=== PATIENT | male | born 1995 | race Caucasian/White ===

== ENCOUNTER 2020-10-24 17:22 | Emergency (ER) | payer OTHER, SELFPAY ==
--- NOTE | ~2020-10-24 | US_ITS ---
EXAMINATION: US ABDOMEN COMPLETE CLINICAL INFORMATION: Right, left, and epigastric abdominal pain. COMPARISON: None TECHNIQUE: Real-time imaging of the abdominal viscera. FINDINGS: PANCREAS: Normal. ABDOMINAL AORTA: The proximal, mid, and distal segments are normal in caliber. INFERIOR VENA CAVA: Visualized portions are normal. LIVER: The liver is normal in size. The liver contour is normal. Increased hepatic parenchymal echogenicity. No focal hepatic lesion. There is no intrahepatic biliary duct dilatation seen. GALLBLADDER: Normal. The gallbladder is physiologically distended without evidence of stones, sludge, polyps, wall thickening or pericholecystic fluid. COMMON BILE DUCT: Normal in caliber measuring 0.4 cm in diameter. RIGHT KIDNEY: Normal. No hydronephrosis. No renal calculi or focal parenchymal lesions. The kidney measures 11.3 cm in maximum dimension. LEFT KIDNEY: Normal. No hydronephrosis. No renal calculi or focal parenchymal lesions. The kidney measures 11.8 cm in maximum dimension. SPLEEN: Normal. The spleen measures 11.2 cm in maximum dimension. FREE FLUID: None. US/US abdomen complete IMPRESSION: 1. Increased hepatic parenchymal echogenicity, which can be seen in the setting of steatosis. Underlying hepatocellular disease cannot be excluded. No hepatic parenchymal lesion or biliary ductal dilatation. 2. Otherwise, unremarkable examination.
--- NOTE | ~2020-10-24 | CT_ITS ---
EXAMINATION: CT ABDOMEN AND PELVIS WITHOUT CONTRAST CLINICAL INFORMATION: Abdominal pain COMPARISON: Abdominal ultrasound earlier this evening TECHNIQUE: Multidetector volumetric imaging was performed from the superior aspect of the liver through the pubic symphysis. Sagittal and coronal reformatted images were obtained on the technologist's workstation. This CT examination was performed using dose optimization techniques as appropriate, variously including the following: *Automated exposure control *Adjustment of mA and/or kV according to patient size (this includes techniques or standardized protocols for targeted exams where dose is matched to indication/reason for exam; i.e. extremities or head) *Use of iterative reconstruction technique DLP: 1089 mGy-cm FINDINGS: LUNG BASES: The visualized lung bases are unremarkable. LIVER, GALLBLADDER, AND BILIARY TREE: The liver is enlarged measuring 21.3 cm in greatest cephalocaudad dimension with hepatic steatosis is redemonstrated. Areas of focal sparing present adjacent to the falciform ligament and gallbladder fossa. No focal hepatic masses or bile duct dilatation is seen. The gallbladder is unremarkable with no evidence of radiopaque gallstones, gallbladder wall thickening, or obvious pericholecystic inflammatory changes. PANCREAS: Unremarkable. SPLEEN: Unremarkable. A small splenule is present ADRENAL GLANDS: Unremarkable. KIDNEYS AND URETERS: The kidneys are normal in size, shape, and attenuation. No hydronephrosis, hydroureter, or calculi seen. No perinephric stranding. BLADDER: Unremarkable. GASTROINTESTINAL TRACT: Colonic diverticular changes are present without diverticulitis. The small and large bowel are unremarkable. The appendix is unremarkable. ABDOMINAL WALL: No significant hernia is appreciated. LYMPH NODES: Normal. VASCULAR: Unremarkable. PELVIC VISCERA: Prostate and seminal vesicles appear normal. OSSEOUS STRUCTURES: Unremarkable. CT/CT abdomen pelvis wo con IMPRESSION: An etiology for the patient's abdominal pain is not been found. Incidental note made of enlarged fatty liver and colonic diverticulosis without diverticulitis.
[2020-10-24 17:47] VITALS: BP 145/79; PULSE 70; RESP 18; TEMP 36.8; O2SAT 98; BMI 43.0
--- NOTE | 2020-10-24 19:35 | ED_ITS ---
HPI - Abdominal Pain General Chief Complaint: Abdominal Pain Stated Complaint: Chest pressure/Nausea Time Seen by Provider: 10/24/20 19:32 Source: patient and family Mode of arrival: ambulatory Limitations: no limitations History of Present Illness HPI narrative: 25-year-old male presents with his mother, has suspected autism or nonverbal learning disorder, presents with several days of epigastric pain, chest pressure, and a feeling of a full abdomen. When his abdomen feels very full, he does occasionally vomit. Patient is morbidly obese, does not have the best diet, and plays video games most of the day. He does not report any fevers or chills, and does not report any other concerning symptoms. MD elicited complaint: abdominal pain Onset (ago): day(s) (4) Pain Consistency: intermittent Location: epigastric, LUQ and RUQ Severity: moderate Quality: aching and fullness Radiation: none Migration to: no migration Exacerbating factors: eating, vomiting and movement Relieving factors: nothing Context: history of similar episodes Associated symptoms: denies other symptoms Treatments prior to arrival: NSAIDs and antacids Related Data Previous Rx's Medication Instructions Recorded ondansetron HCl 4 mg tablet 4 mg PO Q8H PRN #20 tab 10/24/20 (Zofran) Allergies Allergy/AdvReac Type Severity Reaction Status Date / Time No Known Allergies Allergy Unverified 11/03/19 19:52 Review of Systems Review of Systems Constitutional: No Weight loss, No Fever, No Chills, No Night Sweats, No Fatigue, No Malaise ENT/Mouth: No Hearing loss, No Ear Pain, No Nasal Congestion, No Sinus Pain, No Hoarseness, No sore throat, No Rhinorrhea, No Swallowing Difficulty Eyes: No Eye Pain, No Swelling, No Redness, No Foreign Body, No Discharge, No Vision Changes Cardiovascular: No Chest Pain, No SOB, No Dyspnea on Exertion, No Orthopnea, No Edema, No Palpitations Respiratory: No Cough, No Sputum, No Wheezing, No Smoke Exposure, No Dyspnea Gastrointestinal: Positive Nausea, Positive Vomiting, positive Diarrhea, positive abdominal Pain, No Hematochezia, No Melena Genitourinary: no irregular bleeding, No Dysuria, No Urinary Frequency, No Hematuria, No Urinary Incontinence, No Urgency, No Flank Pain, No Urinary Flow Changes, No Hesitancy Musculoskeletal: No joint pain, No Myalgias, No Joint Swelling Skin: No Skin Lesions, No rash Neuro: No Weakness, No Numbness, No Paresthesias, No Loss of Consciousness, No Dizziness, No Headache Psych: No Anxiety/Panic, No Depression, No SI/HI/AH/VH, No Social Issues Heme/Lymph: No Bruising, No Bleeding,No Lymphadenopathy Endocrine: No Polyuria, No Polydipsia, No Temperature Intolerance Yes all other systems are reviewed and are negative Physical Exam Vital Signs: Vital Signs: Last Vital Signs Temp 98.2 F 10/24/20 17:47 Pulse 82 10/24/20 23:19 Resp 16 10/24/20 23:19 BP 131/80 10/24/20 23:19 Pulse Ox 97 10/24/20 23:19 Body Mass Index 43.0 Appearance: Alert. Oriented X3. Mild distress. Eyes: Pupils equal, round and reactive to light. Sclerae nonicteric. ENT: Pharynx normal. Moist mucous membranes. Neck: Normal inspection. Neck supple. CVS: Normal heart rate and rhythm. Pulses normal. Respiratory: No respiratory distress. Breath sounds normal. Abdomen: Soft, morbidly obese, tender to palpation to the right upper left upper and epigastric, negative McBurney's. No suprapubic tenderness noted. No CVA tenderness. Skin: Skin warm and dry. Normal skin color. Normal skin turgor. Extremities: No lower extremity edema. Gait well balanced well coordinated. Moves all extremities against resistance. Neuro: No motor deficit. No sensory deficit. Cranial nerves 2-12 intact. Course Course Course Narrative: 25-year-old male presents with his mother, mother states that he has been nonverbal learning disorder and is suspected to have autism, patient states to have intermittent episodes of epigastric, right and left upper quadrant abdominal pain. Pain is also associated with feeling of fullness, and occasional vomiting. Will order abdominal ultrasound and labs. Labs indicate a white count of 12.2, and ultrasound shows an enlarged gallbladder. Will order CT scan of abdomen and pelvis. CT abdomen pelvis negative for acute findings detailed description of results as well as printout of ultrasound and CT scan results given to his mother. They do have a follow-up appointment with primary care physician on the , will refer to Gastroenterology and General Surgeon as an outpatient basis for enlarged gallbladder. Mother was advised to continue with Maalox, bland diet and fluids. Prescribed Zofran for intermittent nausea and vomiting. Mother and patient verbalized understanding of and agrees to plan of care discharge home. MDM - Abdominal Pain Differential Diagnosis Differential diagnosis: Likely abdominal pain, acute appendicitis, constipation, gastroenteritis, pancreatitis and peptic ulcer disease Medical Records Attestation: I reviewed the patient's medical records. Lab Data Attestation: I reviewed the patient's lab results. Result diagrams: 10/24/20 21:50 10/24/20 21:50 Labs: Lab Results 10/24/20 10/24/20 10/24/20 Range/Units 20:35 21:50 21:50 WBC 12.3 H (4.8-10.8) X10*3/uL RBC 5.34 (4.60-5.80) X10*6/uL Hgb 15.3 (14.0-18.0) g/dl Hct 44.7 (42-52) % MCV 83.7 (80-98) fL MCH 28.7 (27.0-33.0) pg MCHC 34.2 (31.0-36.0) g/dl RDW 12.5 (11.0-16.0) % Plt Count 227 (160-400) X10*3/uL MPV 11.7 (9.4-12.4) fL Immature Gran % (Auto) 0.3 (0.0-0.4) % Neut % (Auto) 72.3 (45-73) % Lymph % (Auto) 21.6 (20-40) % [place] % (Auto) 4.9 (2-11) % Eos % (Auto) 0.5 (0-4) % Baso % (Auto) 0.4 (0-2) % Lymph # (Auto) 2.7 (1.2-4.9) X10*3/uL [place] # (Auto) 0.6 (0.1-1.2) X10*3/uL Eos # (Auto) 0.1 (0.0-0.4) X10*3/uL Baso # (Auto) 0.1 (0.0-0.2) X10*3/uL Abs Immat Gran (auto) 0.04 H (0.00-0.03) X10*3/uL Absolute Neuts (auto) 8.9 H (2.0-8.3) X10*3/uL Absolute Nucleated RBC 0.000 (0.0-0.012) X10*3/uL Nucleated RBC % (auto) 0.0 (0.0-0.2) /100WBC Sodium 138 (135-145) mmol/L Potassium 4.7 (3.3-5.1) mmol/L Chloride 104 (96-108) mmol/L Carbon Dioxide 21 L (22-29) mmol/L Anion Gap 18 (12-20) BUN 11 (9-16) mg/dL Creatinine 0.81 (0.5-1.4) mg/dL Estim Creat Clear Calc 184.4 Estimated GFR > 60 Random Glucose 94 (60-115) mg/dL Calcium 9.3 (8.4-10.2) mg/dL Total Bilirubin 0.4 (0.0-1.0) mg/dL AST 28 (5-37) U/L ALT 46 H (0-40) U/L Alkaline Phosphatase 57 (39-117) U/L Total Protein 7.8 (6.5-8.0) g/dL Albumin 4.3 (3.5-5.0) g/dL Lipase 14 (8-78) U/L Urine Color YELLOW Urine Appearance CLEAR Urine pH 6.5 (5.0-8.0) Ur Specific [place] 1.015 (1.005-1.025) Urine Protein NEG (NEG-TRACE) MG/DL Urine Glucose (UA) NEG (NEG) MG/DL Urine Ketones NEG (NEG) MG/DL Urine Blood NEG (NEG) Urine Nitrite NEG (NEG) Ur Leukocyte Esterase NEG (NEG) COVID-19 (BIANKA) (Negative) COVID-19 Clin Com 10/24/20 Range/Units 22:17 WBC (4.8-10.8) X10*3/uL RBC (4.60-5.80) X10*6/uL Hgb (14.0-18.0) g/dl Hct (42-52) % MCV (80-98) fL MCH (27.0-33.0) pg MCHC (31.0-36.0) g/dl RDW (11.0-16.0) % Plt Count (160-400) X10*3/uL MPV (9.4-12.4) fL Immature Gran % (Auto) (0.0-0.4) % Neut % (Auto) (45-73) % Lymph % (Auto) (20-40) % [place] % (Auto) (2-11) % Eos % (Auto) (0-4) % Baso % (Auto) (0-2) % Lymph # (Auto) (1.2-4.9) X10*3/uL [place] # (Auto) (0.1-1.2) X10*3/uL Eos # (Auto) (0.0-0.4) X10*3/uL Baso # (Auto) (0.0-0.2) X10*3/uL Abs Immat Gran (auto) (0.00-0.03) X10*3/uL Absolute Neuts (auto) (2.0-8.3) X10*3/uL Absolute Nucleated RBC (0.0-0.012) X10*3/uL Nucleated RBC % (auto) (0.0-0.2) /100WBC Sodium (135-145) mmol/L Potassium (3.3-5.1) mmol/L Chloride (96-108) mmol/L Carbon Dioxide (22-29) mmol/L Anion Gap (12-20) BUN (9-16) mg/dL Creatinine (0.5-1.4) mg/dL Estim Creat Clear Calc Estimated GFR Random Glucose (60-115) mg/dL Calcium (8.4-10.2) mg/dL Total Bilirubin (0.0-1.0) mg/dL AST (5-37) U/L ALT (0-40) U/L Alkaline Phosphatase (39-117) U/L Total Protein (6.5-8.0) g/dL Albumin (3.5-5.0) g/dL Lipase (8-78) U/L Urine Color Urine Appearance Urine pH (5.0-8.0) Ur Specific [place] (1.005-1.025) Urine Protein (NEG-TRACE) MG/DL Urine Glucose (UA) (NEG) MG/DL Urine Ketones (NEG) MG/DL Urine Blood (NEG) Urine Nitrite (NEG) Ur Leukocyte Esterase (NEG) COVID-19 (BIANKA) Negative (Negative) COVID-19 Clin Com See Note Imaging Data Abdominal ultrasound: Attestation: I personally reviewed and interpreted this imaging study as follows: Radiologist's impression: EXAMINATION: US ABDOMEN COMPLETE CLINICAL INFORMATION: Right, left, and epigastric abdominal pain. COMPARISON: None TECHNIQUE: Real-time imaging of the abdominal viscera. FINDINGS: PANCREAS: Normal. ABDOMINAL AORTA: The proximal, mid, and distal segments are normal in caliber. INFERIOR VENA CAVA: Visualized portions are normal. LIVER: The liver is normal in size. The liver contour is normal. Increased hepatic parenchymal echogenicity. No focal hepatic lesion. There is no intrahepatic biliary duct dilatation seen. GALLBLADDER: Normal. The gallbladder is physiologically distended without evidence of stones, sludge, polyps, wall thickening or pericholecystic fluid. COMMON BILE DUCT: Normal in caliber measuring 0.4 cm in diameter. RIGHT KIDNEY: Normal. No hydronephrosis. No renal calculi or focal parenchymal lesions. The kidney measures 11.3 cm in maximum dimension. LEFT KIDNEY: Normal. No hydronephrosis. No renal calculi or focal parenchymal lesions. The kidney measures 11.8 cm in maximum dimension. SPLEEN: Normal. The spleen measures 11.2 cm in maximum dimension. FREE FLUID: None. US/US abdomen complete IMPRESSION: 1. Increased hepatic parenchymal echogenicity, which can be seen in the setting of steatosis. Underlying hepatocellular disease cannot be excluded. No hepatic parenchymal lesion or biliary ductal dilatation. ? 2. Otherwise, unremarkable examination. CT scan - abdomen: Attestation: I personally reviewed and interpreted this imaging study as follows: Radiologist's impression: FINDINGS: LUNG BASES: The visualized lung bases are unremarkable.? LIVER, GALLBLADDER, AND BILIARY TREE: The liver is enlarged measuring 21.3 cm in greatest cephalocaudad dimension with hepatic steatosis is redemonstrated. Areas of focal sparing present adjacent to the falciform ligament and gallbladder fossa. No focal hepatic masses or bile duct dilatation is seen. The gallbladder is unremarkable with no evidence of radiopaque gallstones, gallbladder wall thickening, or obvious pericholecystic inflammatory changes.? PANCREAS: Unremarkable.? SPLEEN: Unremarkable. A small splenule is present ADRENAL GLANDS: Unremarkable.? KIDNEYS AND URETERS: The kidneys are normal in size, shape, and attenuation. No hydronephrosis, hydroureter, or calculi seen. No perinephric stranding. ? BLADDER: Unremarkable.? GASTROINTESTINAL TRACT: Colonic diverticular changes are present without diverticulitis. The small and large bowel are unremarkable. The appendix is unremarkable.? ABDOMINAL WALL: No significant hernia is appreciated.? LYMPH NODES: Normal. VASCULAR: Unremarkable. PELVIC VISCERA: Prostate and seminal vesicles appear normal.? OSSEOUS STRUCTURES: Unremarkable.? CT/CT abdomen pelvis wo con IMPRESSION: An etiology for the patient's abdominal pain is not been found. Incidental note made of enlarged fatty liver and colonic diverticulosis without diverticulitis.? Discharge Plan Discharge Clinical Impression: Enlarged gallbladder Patient Disposition: Home, Self-Care Instructions: Biliary Colic (ED) Additional Instructions: You were evaluated for abdominal pain. Ultrasound and CT scan show an enlarged gallbladder. You may consider following up with Gastroenterology and or surgeon for further care. I have referred you to both Gastroenterology and General Surgeon. I prescribed Zofran for nausea. Please take this medication as directed. Thank you for choosing this emergency department for evaluation. Please follow-up with primary care physician as needed. Return to the emergency department for any new, concerning, or worsening symptoms. Prescriptions: New ondansetron HCl [Zofran] 4 mg tablet 4 mg PO Q8H PRN (Reason: nausea and vomiting) Qty: 20 RF: 0 Referrals: Juan Luis Colon [Physician] - 2 days (Fatty liver, gallbladder disease) Douglas Hernandez MD [Physician] - 2 days (Enlarged gallbladder without evidence of cholecystitis) Interventions: ED Discharge Assessment Last Done: 10/25/20 00:12 Discharge Date/Time: 10/25/20 00:13 [facility] Past Medical History Attestation statement: The following information was validated with the patient. Source: old records reviewed Medical History (Updated 10/24/20 @ 23:50 by Emily Scott NP) No known health problems Social History Social History Advance Directives: No Advance Directives Information Provided: Yes
--- NOTE | 2020-10-24 20:51 | PC.NURSE ---
difficult iv stick another rn trying at this time.
[2020-10-24 20:52] LABS: Appearance Urine CLEAR; Color Urine YELLOW; Glucose Urine UA NEG (NEG); Leukocyte Esterase Urine NEG (NEG); Nitrite Urine NEG (NEG); PH 6.5 (5.0-8.0); Specific Gravity - Urine 1.015 (1.005-1.025); Urine Blood NEG (NEG); Urine Ketones NEG (NEG); Urine Protein NEG (NEG-TRACE)
--- NOTE | 2020-10-24 21:14 | PC.NURSE ---
2nd rn unable to obtain a iv.
[2020-10-24] MEDS: 0.9 % Sodium Chloride 1,000 ML 999 ML IV (21:53)
[2020-10-24] MEDS: ondansetron HCL 4 MG/2 ML VIAL IVPUSH (21:54)
--- NOTE | 2020-10-24 21:54 | PC.NURSE ---
iv to right arm #20 inserted by provider.
[2020-10-24 21:56] LABS: MANUAL DIFF FLAG NO
[2020-10-24 21:57] LABS: Basophils Absolute Auto 0.1 X10*3/uL (0.0-0.2); Basophils Percent Auto 0.4 % (0-2); Eosinophils Absolute Auto 0.1 X10*3/uL (0.0-0.4); Eosinophils Percent Auto 0.5 % (0-4); Hematocrit 44.7 % (42-52); Hemoglobin 15.3 g/dl (14.0-18.0); Imm Gran Abs Auto 0.04 X10*3/uL (0.00-0.03); Imm Gran Pct Auto 0.3 % (0.0-0.4); Lymphocytes Absolute Auto 2.7 X10*3/uL (1.2-4.9); Lymphocytes Percent Auto 21.6 % (20-40); Mean Corpuscular HGB Conc 34.2 g/dl (31.0-36.0); Mean Corpuscular Hemoglobin 28.7 pg (27.0-33.0); Mean Corpuscular Volume 83.7 fL (80-98); Mean Platelet Volume 11.7 fL (9.4-12.4); Monocytes Absolute Auto 0.6 X10*3/uL (0.1-1.2); Monocytes Percent Auto 4.9 % (2-11); Neutrophils Absolute Auto 8.9 X10*3/uL (2.0-8.3); Neutrophils Percent Auto 72.3 % (45-73); Platelet Count 227 X10*3/uL (160-400); Red Blood Count 5.34 X10*6/uL (4.60-5.80); Red Cell Distribution Width 12.5 % (11.0-16.0); White Blood Count 12.3 X10*3/uL (4.8-10.8)
[2020-10-24 22:21] LABS: Alanine Aminotransferase 46 U/L (0-40); Albumin Level 4.3 g/dL (3.5-5.0); Alkaline Phosphatase 57 U/L (39-117); Anion Gap 18 (12-20); Aspartate Amino Transferase 28 U/L (5-37); Bilirubin Total 0.4 mg/dL (0.0-1.0); Blood Urea Nitrogen 11 mg/dL (9-16); Calcium 9.3 mg/dL (8.4-10.2); Carbon Dioxide 21 mmol/L (22-29); Chloride 104 mmol/L (96-108); Creatinine Clr Calc Pharmacy 184.4; Estimated Glomerular Filt Rate > 60; Glucose Random 94 mg/dL (60-115); Lipase 14 U/L (8-78); Potassium 4.7 mmol/L (3.3-5.1); Sodium 138 mmol/L (135-145); Total Protein 7.8 g/dL (6.5-8.0)
[2020-10-24 22:44] LABS: COVID-19 Test Negative (Negative); IDNOW Serial# 08D9AD1C
[2020-10-24 23:19] VITALS: BP 131/80; PULSE 82; RESP 16; O2SAT 97
== END 2020-10-25 00:13 | disposition home or self-care (01) ==
PROVIDERS: Nurse Practitioner Family; Emergency Provider Student in an Organized Health Care Education/Training Program; PCP Internal Medicine
DX: K82.8 Other specified diseases of gallbladder (principal); R10.13 Epigastric pain; R10.11 Right upper quadrant pain; Z20.822 Contact with and (suspected) exposure to COVID-19; Z79.899 Other long term (current) drug therapy
CPT/HCPCS: 36415; 74176; 76700; 80053; 81003; 83690; 85025; 87635; 96361; 96374; 99284; J2405

== ENCOUNTER 2021-08-06 09:55 | Emergency (ER) | payer MEDICARE, MEDICAID, SELFPAY ==
[2021-08-06 10:07] VITALS: BP 133/75; PULSE 68; RESP 18; TEMP 36.9; O2SAT 98; BMI 44.3
--- NOTE | 2021-08-06 10:19 | ED.GENADULT ---
HPI - General Adult General Chief complaint: General Medical Stated complaint: COUGH, SORE THROAT Time Seen by Provider: 08/06/21 10:19 Source: patient Mode of arrival: ambulatory Limitations: no limitations History of Present Illness HPI narrative: 26-year-old male with history of asthma here with 2 days of cough and sore throat. Patient tells me he had COVID in February of 2021 requiring hospitalization for hypoxia. He has not received a COVID vaccine. He is here seeking a COVID test. He denies any fevers, chills, difficulty breathing, chest pain, vomiting or diarrhea. Related Data Previous Rx's Medication Instructions Recorded ondansetron HCl 4 mg tablet 4 mg PO Q8H PRN nausea and 10/24/20 (Zofran) vomiting #20 tabs Allergies Allergy/AdvReac Type Severity Reaction Status Date / Time No Known Allergies Allergy Unverified 11/03/19 19:52 Review of Systems Review of Systems: Yes all other systems are reviewed and are negative Constitutional: Constitutional: Reports no additional constitutional complaints, Denies body ache(s), Denies chills, Denies fever(s), Denies headache(s) and Denies weakness Eyes: Eyes: Reports no additional eye complaints and Denies change in vision ENT: Reports system reviewed and no additional complaints, except as documented, Denies dizziness, Denies headache(s), Denies nasal congestion, Denies nasal discharge, Denies neck pain and Reports sore throat Cardiovascular: Cardiovascular: Reports no additional cardiovascular complaints, Denies chest pain, Denies leg edema and Denies dyspnea Respiratory: Respiratory: Reports no additional respiratory complaints, Reports cough and Denies dyspnea Gastrointestinal: Gastrointestinal: Reports no additional gastrointestinal complaints, Denies abdominal pain, Denies diarrhea, Denies nausea and Denies vomiting Genitourinary: Genitourinary: Denies urinary incontinence Musculoskeletal: Musculoskeletal: Reports no additional musculoskeletal complaints, Denies back pain, Denies arthralgias, Denies joint swelling, Denies neck pain, Denies numbness and Denies tingling Integumentary/Breasts: Skin/Breast: Reports system reviewed and no additional complaints, except as docu and Denies rash Neurologic: Reports system reviewed and no additional complaints, except as documented, Denies dizziness, Denies headache(s), Denies numbness, Denies tingling and Denies weakness PMFSH Past Medical History Attestation statement: The following information was validated with the patient. Source: old records reviewed and nursing notes reviewed Medical History No known health problems Social History Social History Advance Directives: No Advance Directives Information Provided: Yes Physical Exam ED Vital Signs: Vital Signs - 24 hr 08/06/21 10:07 Temperature 98.5 F Pulse Rate 68 Respiratory Rate 18 Blood Pressure 133/75 Pulse Oximetry 98 Oxygen Delivery Method Room Air BMI result Body Mass Index 44.3 Const General: cooperative, healthy appearing and comfortable Orientation/consciousness: patient oriented x3 Limitations: no limitations HENMT Head: Yes normal to inspection Ears: hearing grossly normal bilaterally and TM's normal bilaterally General nose exam: Normal external nose present Face and sinus: Yes normal facial exam Mouth: Normal oral and palatal mucosa present Teeth and gingiva: dentition normal Throat: Yes posterior oropharynx normal, Yes tonsils normal and Yes uvula midline Eyes General: appearance normal, both eyes and all related structures Pupils: Equal, round and reactive pupils present Neck Neck: Yes normal visual inspection, Yes full ROM, Yes no lymphadenopathy and Yes no meningeal signs Chest Chest palpation & inspection: normal inspection of the chest Resp Effort & Inspection: normal respiratory effort Auscultation: clear to auscultation bilaterally Cardio Rate: regular rate Rhythm: regular rhythm Peripheral pulses: Peripheral pulses 2+ throughout GI Inspection: Yes normal to inspection Back/Spine/Pelvis Thoracic/Lumbar Spine: thoracic and lumbar spine normal to inspection Skin General skin exam: no rashes or lesions noted Neuro General: patient oriented x3, moves all extremities and no meningeal signs Cranial nerves: Yes Equal, round and reactive pupils present Extrem General: Yes normal to inspection, Yes no pedal edema and Yes no calf tenderness Course Course Course Narrative: COVID and flu testing are negative. Likely viral syndrome. Recommended supportive care at home. Reviewed worrisome signs and symptoms of when to return to the emergency department. Comfortable discharge home. Medical Decision Making MDM Narrative Medical decision making narrative: 26-year-old male here with URI symptoms for 2 days seeking a COVID test. Vitals are stable. Exam is normal. Will send COVID testing Medical Records Medical records reviewed: Yes I reviewed the patient's medical records. Lab Data Lab results reviewed: Yes I reviewed the patient's lab results. Labs: Lab Results 08/06/21 08/06/21 Range/Units 10:10 10:10 COVID-19 (BIANKA) Negative (Negative) COVID-19 Clin Com See Note Influenza Type A (PEGGY) Negative (Negative) Influenza Type B (PEGGY) Negative (Negative) Influenza A & B Note See Note Discharge Plan Discharge Clinical Impression: Acute viral syndrome Patient Disposition: Home, Self-Care Instructions: Viral Syndrome (ED) Additional Instructions: Testing for flu and COVID are negative Increase fluids, rest Take Motrin or Tylenol if needed for pain or fever Return for shortness of breath, chest pain, fever which is not respond to Motrin Tylenol Prescriptions: No Action ondansetron HCl [Zofran] 4 mg tablet 4 mg PO Q8H PRN (Reason: nausea and vomiting) Qty: 20 0RF Referrals: Dawson Cazares III, MD [Primary Care Provider] - 1 week Interventions: ED Discharge Assessment Last Done: 08/06/21 11:19 Discharge Date/Time: 08/06/21 11:20
[2021-08-06 10:48] LABS: COVID-19 Test Negative (Negative)
[2021-08-06 10:56] LABS: Influenza A Negative (Negative); Influenza B2 Negative (Negative)
== END 2021-08-06 11:20 | disposition home or self-care (01) ==
PROVIDERS: Emergency Provider Emergency Medicine; PCP Internal Medicine
DX: B34.9 Viral infection, unspecified (principal); R05.9 Cough, unspecified; Z20.822 Contact with and (suspected) exposure to COVID-19; Z79.899 Other long term (current) drug therapy
CPT/HCPCS: 87502; 87635; 99283

== ENCOUNTER 2021-08-10 20:56 | Emergency (ER) | payer OTHER, SELFPAY | END 2021-08-10 21:26 | disposition left against medical advice (07) | PROVIDERS: Emergency Provider Emergency Medicine; PCP Internal Medicine | DX: M54.50 Low back pain, unspecified (principal) ==

== ENCOUNTER 2023-04-15 23:43 | Emergency (ER) | payer MEDICARE, MEDICAID, SELFPAY ==
--- NOTE | ~2023-04-15 | XR_ITS ---
EXAMINATION: XR CHEST CLINICAL INFORMATION: Cough COMPARISON: 09/11/2019 TECHNIQUE: Frontal view of the chest was obtained. FINDINGS: The lungs are clear with no focal consolidation. No evidence of pneumothorax, pulmonary edema, or pleural effusions. The cardiomediastinal silhouette is unremarkable. No acute osseous findings. XR/XR chest 1V IMPRESSION: No acute cardiopulmonary findings.
[2023-04-15 23:59] VITALS: BP 134/79; PULSE 103; RESP 18; TEMP 37.1; O2SAT 93; BMI 50.2
--- NOTE | 2023-04-16 01:00 | ED_ITS ---
HPI - URI/Sore Throat General Chief Complaint: Upper Respiratory Symptoms Stated Complaint: Fever/Sob/Covid+ at home Time Seen by Provider: 04/16/23 00:30 Source: patient and family Mode of arrival: ambulatory History of Present Illness HPI Narrative: 27-year-old male with cough, congestion, shortness of breath, sore throat for the past 3 days and reports sick contact from his mother. Related Data Previous Rx's Medication Instructions Recorded ondansetron HCl 4 mg tablet 4 mg PO Q8H PRN nausea and 10/24/20 (Zofran) vomiting #20 tabs Allergies Allergy/AdvReac Type Severity Reaction Status Date / Time No Known Allergies Allergy Unverified 11/03/19 19:52 Review of Systems Review of Systems: Pertinent positives and negatives as stated in [facility] Past Medical History Source: nursing notes reviewed Medical History No known health problems Social History Social History Advance Directives: No Advance Directives Information Provided: Yes Physical Exam Vital Signs: Vital Signs: Last Vital Signs Temp 98.8 F 04/15/23 23:59 Pulse 103 H 04/15/23 23:59 Resp 18 04/15/23 23:59 BP 134/79 04/15/23 23:59 Pulse Ox 93 04/15/23 23:59 O2 Del Method Room Air 04/15/23 23:59 BMI result Body Mass Index 50.2 VITAL SIGNS: Reviewed. GENERAL: Well developed, well nourished, in no acute distress. HEAD: Normocephalic/atraumatic EYES: PERRLA, EOMI EARS: Ext canals without abnormality, TMs non-bulging and non-erythematous NOSE: Nares patent bilateral OROPHARYNX: no oral lesions noted, posterior pharynx clear and non-erythematous without noted tonsillar enlargement/erythema/exudates NECK: Supple, no adenopathy LUNGS: Normal breath sounds. No adventitious sounds or accessory muscle use. SpO2<93> CARDIOVASCULAR: Regular rate and rhythm without noted murmurs ABDOMEN: Soft, non-tender, non-distended with bowel sounds. MUSCULOSKELETAL: No tenderness, deformities, or effusions noted on gross inspection. EXTREMITIES: No cyanosis, clubbing or edema. SKIN: Inspection of the skin reveals no rashes NEUROLOGIC: Alert and oriented x 4. Strength and sensation to light touch were grossly intact x 4. Medications Administered Discontinued Medications Generic Name Dose Route Start Last Admin Trade Name Ana PRN Reason Stop Dose Admin Acetaminophen 975 mg 04/16/23 00:58 04/16/23 01:13 Acetaminophen 325 Mg Tablet PO 04/16/23 00:59 975 mg ONCE ONE Administration Ibuprofen 400 mg 04/16/23 00:58 04/16/23 01:12 Ibuprofen 400 Mg Tablet PO 04/16/23 00:59 400 mg ONCE ONE Administration Medical Decision Making Medical Decision Making MDM Narrative: 27-year-old male with history and clinical presentation most suggestive of viral syndrome, on review of investigations patient is noted be influenza A positive but is outside the window for treatment with Tamiflu. Chest x-ray otherwise is not demonstrate infiltrate or venous congestion otherwise my interpretation is in agreement with radiology's impression. All results and findings discussed with patient at bedside and he is otherwise discharged with presumptive viral syndrome secondary to influenza a infection. Differential Diagnosis Differential Diagnoses: The differential diagnosis associated with the presentation includes Please see the discussion above Admission/Observation Consideration of admission/observation: Escalation of care including admission/observation considered Please see the discussion above Lab Data [facility] Lab Attestation statement: I reviewed the patient's lab results. Please see the discussion above Labs: Lab Results 04/16/23 Range/Units 00:54 COVID-19 (BIANKA) Negative (Negative) COVID-19 Clin Com See Note Influenza Type A (PEGGY) Positive A (Negative) Influenza Type B (PEGGY) Negative (Negative) Influenza A & B Note See Note Radiology Impression Discussion of test interpretation with radiology: I have reviewed the radiologist's reading. Radiologist Impression: Please see the discussion above Critical Care Time Critical Care Time Critical Care Time: Yes Total Critical Care Time: 30 Attestation: I personally attest to this time spent taking care of the patient. Discharge Plan Discharge Clinical Impression: Viral syndrome, Influenza A Patient Disposition: Home, Self-Care Instructions: Influenza (ED), Viral Syndrome (ED) Additional Instructions: 1. Recommend plenty of rest, adequate water intake, Tylenol/ibuprofen for body [id number] greater than 100.4. Return to the ER for any worsening symptoms. Prescriptions: No Action ondansetron HCl [Zofran] 4 mg tablet 4 mg PO Q8H PRN (Reason: nausea and vomiting) Qty: 20 0RF Referrals: Dawson Cazares III, MD [Primary Care Provider] - Stand Alone Forms: Work/School Release
[2023-04-16] MEDS: Ibuprofen 400 MG TABLET PO (01:12)
[2023-04-16] MEDS: Acetaminophen 325 MG TABLET 975 MG PO (01:13)
[2023-04-16 01:27] LABS: COVID-19 Test Negative (Negative); IDNOW Serial# 08D9AD1C; IDNOW Serial# 152EDE1D; Influenza A Positive (Negative); Influenza B2 Negative (Negative)
[2023-04-16 02:11] VITALS: BP 131/92; PULSE 92; RESP 18; TEMP 37.2; O2SAT 96
== END 2023-04-16 02:14 | disposition home or self-care (01) ==
PROVIDERS: Emergency Provider Student in an Organized Health Care Education/Training Program; PCP Internal Medicine
DX: U07.1 COVID-19 (principal); J10.1 Influenza due to other identified influenza virus with other respiratory manifestations; R50.9 Fever, unspecified; R06.02 Shortness of breath; R05.9 Cough, unspecified
CPT/HCPCS: 71045; 87502; 87635; 99283; 99285

== ENCOUNTER 2023-05-19 00:11 | Emergency (ER) | payer MEDICARE, MEDICAID, SELFPAY ==
--- NOTE | ~2023-05-19 | XR_ITS ---
EXAMINATION: XR CHEST CLINICAL INFORMATION: Cough. COMPARISON: None available. TECHNIQUE: Frontal view of the chest was obtained. FINDINGS: No significant abnormality is noted involving the heart, lungs, mediastinum, bony thorax or soft tissues. XR/XR chest 1V IMPRESSION: Unremarkable examination.
[2023-05-19 01:06] VITALS: BP 146/79; PULSE 84; RESP 20; TEMP 37.5; O2SAT 94; BMI 49.0
[2023-05-19 03:28] VITALS: BP 148/95; PULSE 99; RESP 20; TEMP 37.2; O2SAT 97
[2023-05-19] MEDS: Ketorolac Tromethamine 60 MG/2 ML VIAL IM (06:27)
--- NOTE | 2023-05-19 06:35 | ED_ITS ---
HPI - General Adult General Chief complaint: Back Pain/Injury Stated complaint: has flu, 'popped' something in back while coughing Time Seen by Provider: 05/19/23 06:13 Source: patient and family Mode of arrival: ambulatory Limitations: no limitations History of Present Illness HPI narrative: Patient comes to the emergency room accompanied by his father. Patient complaining of right-sided lower back pain after coughing. Patient believes he cracked a rib. Patient denies any shortness of breath. Related Data Previous Rx's Medication Instructions Recorded ondansetron HCl 4 mg tablet 4 mg PO Q8H PRN nausea and 10/24/20 (Zofran) vomiting #20 tabs benzonatate 100 mg capsule 100 mg PO TID PRN cough #14 caps 05/19/23 ibuprofen 600 mg tablet 600 mg PO Q6H PRN fever or pain 05/19/23 #20 tabs Allergies Allergy/AdvReac Type Severity Reaction Status Date / Time No Known Allergies Allergy Verified 05/19/23 01:06 Review of Systems Review of Systems: Constitutional : No Weight loss, No Fever, No Chills, No Night Sweats, No Fatigue, No Malaise ENT/Mouth : No Hearing loss, No Ear Pain, No Nasal Congestion, No Sinus Pain, No Hoarseness, No sore throat, No Rhinorrhea, No Swallowing Difficulty Eyes: No Eye Pain, No Swelling, No Redness, No Foreign Body, No Discharge, No Vision Changes Cardiovascular : No Chest Pain, No SOB, No Dyspnea on Exertion, No Orthopnea, No Edema, No Palpitations Respiratory : Complaining of dry Cough, No Sputum, No Wheezing, No Smoke Exposure, No Dyspnea Gastrointestinal : No Nausea, No Vomiting, No Diarrhea, No Constipation, No abdominal Pain, No Hematochezia, No Melena Genitourinary : no irregular bleeding, No Dysuria, No Urinary Frequency, No Hematuria, No Urinary Incontinence, No Urgency, No Flank Pain, No Urinary Flow Changes, No Hesitancy Musculoskeletal : Complaining of back pain on the right, rib pain posteriorly. No joint pain, No Myalgias, No Joint Swelling Skin : No Skin Lesions, No rash Neuro : No Weakness, No Numbness, No Paresthesias, No Loss of Consciousness, No Dizziness, No Headache Psych : No Anxiety/Panic, No Depression, No SI/HI/AH/VH, No Social Issues, Heme/Lymph: No Bruising, No Bleeding,No Lymphadenopathy Endocrine : No Polyuria, No Polydipsia, No Temperature Intolerance [facility] Past Medical History Medical History No known health problems Social History Social History Alcohol intake: current Alcohol intake frequency: holidays/special occasions only Smoked in Last 30 Days: No Use of substances other than those prescribed or required for medical reasons: No Advance Directives: No Advance Directives Information Provided: Yes Physical Exam ED Vital Signs: Vital Signs - 24 hr 05/19/23 01:06 05/19/23 03:28 Temperature 99.5 F 98.9 F Pulse Rate 84 99 Respiratory Rate 20 20 Blood Pressure 146/79 H 148/95 H Pulse Oximetry 94 97 Oxygen Delivery Method Room Air Room Air BMI result Body Mass Index 49.0 Const Other: Appearance: Alert. Oriented X3. No acute distress. Eyes: Pupils equal, round and reactive to light. ENT: Pharynx normal. Neck: Normal inspection. Neck supple. No lymph nodes noted. No crepitus CVS: Normal heart rate and rhythm. Pulses normal. Normal S1 and S2 Respiratory: No respiratory distress. Breath sounds normal. No Wheezing. No rales Abdomen: Soft and nontender. No rigidity. No distention. Back: Pain to palpation on the ribs posteriorly on the right. Skin: Skin warm and dry. Normal skin color. Normal skin turgor. Extremities: No lower extremity edema. No Lacerations. No Rash Neuro: Oriented X 3. No motor deficit. No sensory deficit. Moving all extremities. No slurred speech. CN 2 through 12 grossly intact Psych: calm, cooperative, normal affect Medications Administered Discontinued Medications Generic Name Dose Route Start Last Admin Trade Name Freq PRN Reason Stop Dose Admin Ketorolac Tromethamine 60 mg 05/19/23 06:23 05/19/23 06:27 Ketorolac Tromethamine 60 Mg/2 Ml Vial IM 05/19/23 06:24 60 mg ONCE ONE Administration Medical Decision Making Medical Decision Making MDM Narrative: -my interpretation of x-rays: No infiltrate, no rib fractures. -pain likely musculoskeletal. -patient given IM Toradol and a prescription for cough medication at home. Differential Diagnosis Differential Diagnoses: The differential diagnosis associated with the presentation includes (Musculoskeletal pain, pneumonia, fracture rib) Independent Interpretation I performed an independent interpretation of an: Plain X-Ray Radiology Impression Discussion of test interpretation with radiology: I have reviewed the radiologist's reading. Radiologist Impression: FINDINGS: No significant abnormality is noted involving the heart, lungs, mediastinum, bony thorax or soft tissues. XR/XR chest 1V IMPRESSION: Unremarkable examination. Discharge Plan Discharge Clinical Impression: Costochondritis, Cough Patient Disposition: Home, Self-Care Instructions: Costochondritis (ED), Acute Cough (ED) Additional Instructions: Please follow-up with your primary care physician tomorrow. If you have any worsening or new symptoms, please return to the emergency room or call 911 Prescriptions: New benzonatate 100 mg capsule 100 mg PO TID PRN (Reason: cough) Qty: 14 0RF ibuprofen 600 mg tablet 600 mg PO Q6H PRN (Reason: fever or pain) Qty: 20 0RF No Action ondansetron HCl [Zofran] 4 mg tablet 4 mg PO Q8H PRN (Reason: nausea and vomiting) Qty: 20 0RF Stand Alone Forms: Work/School Release
[2023-05-19 06:50] VITALS: BP 148/82; PULSE 88; RESP 18; TEMP 36.9; O2SAT 99
== END 2023-05-19 06:51 | disposition home or self-care (01) ==
PROVIDERS: Emergency Provider Emergency Medicine; PCP Internal Medicine
DX: M94.0 Chondrocostal junction syndrome [Tietze] (principal); R05.9 Cough, unspecified
CPT/HCPCS: 71045; 96372; 99284; J1885